=== PATIENT | female | born 1950 | race Two or more races ===

== ENCOUNTER → 2017-10-31 | Outpatient (CLI) | payer MEDICARE ==
[~2017-10-31] MED LIST: CIME400 PO; Calcium + Vita1 EACH PO; Cephalexin500 MG PO; Excedrin Extra1 EACH PO; FISH1000 PO; Flomax0.4 MG PO; Inderal40 MG; Iron Supplemen325 MG PO; LORA1 PO; META800 PO; MULVITMIND PO; Norco 5-325 Ta1 EACH PO; Percocet 5-3251 EACH PO; QUININE SULFAT324 MG PO; TRAM50 PO; ZOLP5 PO; Zofran Odt4 MG SL
[2017-10-31 10:33] LABS: Source, Urine Clean Catch
[2017-10-31 17:48] LABS: Bilirubin, Urine Neg (Neg); Blood, Urine 5+ (Neg); Glucose Qualitative, Urine Neg (Neg); Ketones, Urine Neg (Neg); Leukocyte Esterase, Urine 1+ (Neg); Nitrite, Urine Neg (Neg); Protein, Urine 2+ (Neg); Urobilinogen, Urine NORM (Normal)
[2017-10-31 18:32] LABS: Appearance, Urine Hazy (Clear); Color, Urine Yellow (P-Yellow)
[2017-10-31 18:33] LABS: Red Blood Cells, Urine 25-50 /hpf (0-2); Squamous Epithelial Cells Mod /hpf (Few)
[2017-10-31 18:34] LABS: Bacteria Mod /hpf
== END | disposition home or self-care (01) ==
LOC: LAB SHORT 10:29 → LAB 10:29
PROVIDERS: Urology
DX: N39.0 Urinary tract infection, site not specified (principal)
CPT/HCPCS: 81001; 87077; 87086; 87186

== ENCOUNTER → 2018-02-05 | Outpatient (CLI) | payer MEDICARE ==
[2018-02-05 15:01] LABS: Test Name 306266
== END | disposition home or self-care (01) ==
LOC: LAB 14:38 → LAB SHORT 14:38
PROVIDERS: Urology
DX: N20.0 Calculus of kidney (principal)
CPT/HCPCS: 81050

== ENCOUNTER → 2018-09-19 | Outpatient (CLI) | payer MEDICARE ==
[2018-09-28 09:16] LABS: BRUSHITE 0.16 ratio (0.00-3.00); CALCIUM OXALATE 1.76 ratio (0.00-6.00); CALCIUM, URINE 2.9 mg/dL (Not Estab.); CHLORIDE URINE 105 (110-250); CITRIC ACID (CITRATE) 40 mg/L (Not Estab.); CITRIC ACID(CITRATE) 91 mg/24 hr (320-1240); CREATININE, URINE 36.4 mg/dL (Not Estab.); CREATININE, URINE 828.1 mg/24 hr (800.0-1800.0); MAGNESIUM, URINE 1.8 mg/dL (Not Estab.); MONOSODIUM URATE 0.68 ratio (0.00-4.00); OSMOLALITY, URINE 309 (300-900); SODIUM, URINE 139 (39-258); SODIUM, URINE 61 mmol/L (Not Estab.); STRUVITE 0.01 ratio (0.00-1.00); URIC ACID 0.55 ratio (0.00-1.20); URINE VOLUME 2275 mL/24 hr (600-1600); URINE VOLUME (PRESERVATIVE) 2275 mL/24 hr (600-1600)
== END ==
LOC: LAB SHORT 10:00 → LAB 10:00
PROVIDERS: Urology
DX: N20.0 Calculus of kidney (principal)
CPT/HCPCS: 81003; 81050; 82131; 82140; 82340; 82436; 82507; 82570; 83735; 83935; 83945; 84105; 84133; 84300; 84392; 84560

== ENCOUNTER → 2019-03-20 | Outpatient (CLI) | payer MEDICARE ==
[2019-03-28 16:06] LABS: BRUSHITE 2.16 ratio (0.00-3.00); CALCIUM OXALATE 5.13 ratio (0.00-6.00); CALCIUM, URINE 178.5 mg/24 hr (100.0-300.0); CALCIUM, URINE 8.5 mg/dL (Not Estab.); CHLORIDE URINE 99 (110-250); CITRIC ACID (CITRATE) 79 mg/L (Not Estab.); CITRIC ACID(CITRATE) 166 mg/24 hr (320-1240); CREATININE, URINE 43.1 mg/dL (Not Estab.); CREATININE, URINE 905.1 mg/24 hr (800.0-1800.0); MAGNESIUM, URINE 3.8 mg/dL (Not Estab.); MONOSODIUM URATE 1.08 ratio (0.00-4.00); OSMOLALITY, URINE 371 (300-900); SODIUM, URINE 141 (39-258); SODIUM, URINE 67 mmol/L (Not Estab.); STRUVITE 0.02 ratio (0.00-1.00); URIC ACID 0.16 ratio (0.00-1.20); URINE VOLUME 2100 mL/24 hr (600-1600); URINE VOLUME (PRESERVATIVE) 2100 mL/24 hr (600-1600)
== END | disposition home or self-care (01) ==
LOC: LAB SHORT 11:08 → LAB 11:08
PROVIDERS: Urology
DX: N20.0 Calculus of kidney (principal)
CPT/HCPCS: 81003; 81050; 82131; 82140; 82340; 82436; 82507; 82570; 83735; 83935; 83945; 84105; 84133; 84300; 84392; 84560

== ENCOUNTER 2019-07-09 15:10 | Inpatient (IN) | payer MEDICARE ==
[~2019-07-09] VITALS: Ht 157.5 cm; Wt 100.0 kg
[~2019-07-09 15:10] MED LIST changes: +ALLEGRA D PO; +ALLO300 PO; +ASPI81CH PO; +CELE100 PO; +HYDR1TAB94 PO; -Inderal40 MG; +Inderal40 MG PO; +MYRBETRIQ50 MG PO; +POTCIT10 PO; +VITAMIN D31000 UNI3 PO; +ZOLP12.5 PO
--- NOTE | 2019-07-10 07:17 | NUR ---
History, Chart, Medications and Allergies reviewed before start of procedure.Lungs clear T/O to Auscultation. Patient confirms NPO status and agrees with scheduled surgery. Pre-Op teaching done. Pt verbalizes understanding. Patient reports completing Chlorhexadine shower X2 prior to admission to hospital.
--- NOTE | 2019-07-11 04:12 | NUR ---
SHIFT SUMMARY POD 1 R TOTAL SHOULDER. PT [id number] VSS PT DECINED BP MEDS AT BEGINNING OF SHIFT AND REQUESTED THEM LATER ON DURING SHIFT FOR HER BP. SLING IN PLACE, POLAR DAMION ON DURING SHIFT. PT HAS REMAINED NWB ON SURGICAL SHOULDER. PT UP TO BATHROOM WITH STANDBY ASSIST. DRESSING CDI. TOLERATING PO WELL. MEDICATED PER EMAR FOR PAIN. PLAN IS TO GO HOME IN THE AM.
[2019-07-11] MEDS ORDERED: OXYC5 PO (11:04)
--- NOTE | 2019-07-11 12:37 | NUR ---
07/11/19 1237 Maxine Askew VERIFICATIONS: EDIT CHART.
--- NOTE | 2019-07-11 14:37 | NUR ---
PATIENT D/C'D HOME WITH SPOUSE AT THIS TIME; STATES PAIN CONTROLLED WITH PO MEDS, TOLERATING DIET, VOIDING. STATES UNDERSTANDING OF MEDS, WOUND CARE, F/U APPT, ETC. NO ACUTE CHANGES OR C/O AT THIS TIME.
== END 2019-07-11 14:37 | disposition home or self-care (01) | DRG 483 ==
LOC: SURS 07-10 05:52 → PRE IP 07-10 05:52 → SURS 07-10 12:06
PROVIDERS: ADMIT Orthopaedic Surgery
PROC: 0RRJ0JZ Replacement of Right Shoulder Joint with Synthetic Substitute, Open Approach (ICD-10-PCS; principal; 2019-07-10 07:30)
DX: M19.011 Primary osteoarthritis, right shoulder (principal); G47.33 Obstructive sleep apnea (adult) (pediatric); E66.9 Obesity, unspecified; Z79.82 Long term (current) use of aspirin; Z87.891 Personal history of nicotine dependence
CPT/HCPCS: 73030; 88300; 97110; 97116; 97162; 97166; 97535; C1776; J0171; J0690; J0735; J1100; J1885; J2250; J2370; J2405; J2704; J2710; J2795; J3010; J3370; J7120

== ENCOUNTER → 2019-11-01 | Outpatient (CLI) | payer MEDICARE, OTHER ==
[~2019-11-01] MED LIST changes: +OXYC5 PO; +Robaxin-750750 MG PO
[2019-11-08 13:07] LABS: BRUSHITE 0.69 ratio (0.00-3.00); CALCIUM OXALATE 3.92 ratio (0.00-6.00); CALCIUM, URINE 193.2 mg/24 hr (100.0-300.0); CALCIUM, URINE 9.2 mg/dL (Not Estab.); CHLORIDE URINE 176 (110-250); CITRIC ACID (CITRATE) 66 mg/L (Not Estab.); CITRIC ACID(CITRATE) 139 mg/24 hr (320-1240); CREATININE, URINE 1138.2 mg/24 hr (800.0-1800.0); CREATININE, URINE 54.2 mg/dL (Not Estab.); MAGNESIUM, URINE 4.6 mg/dL (Not Estab.); MONOSODIUM URATE 1.23 ratio (0.00-4.00); OSMOLALITY, URINE 496 (300-900); SODIUM, URINE 200 (39-258); SODIUM, URINE 95 mmol/L (Not Estab.); STRUVITE 0.01 ratio (0.00-1.00); URIC ACID 1.01 ratio (0.00-1.20); URINE VOLUME 2100 mL/24 hr (600-1600); URINE VOLUME (PRESERVATIVE) 2100 mL/24 hr (600-1600)
== END | disposition home or self-care (01) ==
LOC: LAB SHORT 10:00 → LAB 10:00 → EDSTATUS 08-27 14:30 → LAB FUT 08-27 14:30
PROVIDERS: Urology
DX: N20.0 Calculus of kidney (principal)
CPT/HCPCS: 81003; 82131; 82140; 82340; 82436; 82507; 82570; 83735; 83935; 83945; 84105; 84133; 84300; 84392; 84560

== ENCOUNTER 2020-05-01 11:19 | Emergency (ER) | payer MEDICARE, OTHER ==
[~2020-05-01] VITALS: Ht 157.5 cm; Wt 90.7 kg
== END 2020-05-01 14:00 | disposition home or self-care (01) ==
LOC: ER 11:19
DX: S06.0X9A Concussion with loss of consciousness of unspecified duration, initial encounter (principal); J44.9 Chronic obstructive pulmonary disease, unspecified; R41.82 Altered mental status, unspecified; Z88.5 Allergy status to narcotic agent; Z79.899 Other long term (current) drug therapy; Z87.442 Personal history of urinary calculi; W01.10XA Fall on same level from slipping, tripping and stumbling with subsequent striking against unspecified object, initial encounter
CPT/HCPCS: 70450; 99284-25

== ENCOUNTER → 2020-06-15 | Outpatient (CLI) | payer MEDICARE, OTHER | END | disposition home or self-care (01) | LOC: LAB 08:30 → LAB SHORT 08:30 → LAB FUT 05-26 08:00 → EDSTATUS 05-26 08:00 | DX: N20.0 Calculus of kidney (principal) | CPT/HCPCS: 81050 ==

== ENCOUNTER 2021-07-15 07:24 | Day surgery (SDC) | payer MEDICARE, OTHER ==
[~2021-07-15] VITALS: Ht 157.5 cm; Wt 91.5 kg
[2021-07-15] MEDS ORDERED: ALLEGRA ALLERG180 MG PO (08:11)
--- NOTE | 2021-07-15 09:27 | NUR ---
07/15/21 0927 Isha Han COMPLETE BY DR BRANDT IN OR. PT SLEEPING. VSS.
--- NOTE | 2021-07-15 10:39 | NUR ---
07/15/21 1039 ALEXIS BARBA 1034 PT O2 SATS DROP 89 ON RA- O2 10L FACETENT- 98% INCENTIVE SPIROMETER EDUCATED AND IMPLEMENTED GOAL 1800- PT HITTING 1000 1036 92-93% O2 RA SEE VITAL STRIP
--- NOTE | 2021-07-15 11:16 | NUR ---
07/15/[address] GAVE VERBAL ORDER FOR INOCENCIO DEMPSEY TO G
== END 2021-07-15 11:31 | disposition home or self-care (01) ==
LOC: ORSCSDS 07:24
PROVIDERS: Orthopaedic Surgery
PROC: 0MU Bursae and Ligaments, Supplement (ICD-10-PCS; principal; 2021-07-15 08:30)
DX: S53.442A Ulnar collateral ligament sprain of left elbow, initial encounter (principal); M24.222 Disorder of ligament, left elbow; I10 Essential (primary) hypertension; I25.10 Atherosclerotic heart disease of native coronary artery without angina pectoris; Z87.891 Personal history of nicotine dependence; G47.33 Obstructive sleep apnea (adult) (pediatric); Z79.899 Other long term (current) drug therapy; Z79.82 Long term (current) use of aspirin; F41.9 Anxiety disorder, unspecified; E66.01 Morbid (severe) obesity due to excess calories; Z68.36 Body mass index [BMI] 36.0-36.9, adult
CPT/HCPCS: C1713; J0690; J1100; J1885; J2250; J2370; J2405; J2704; J2795; J3010; J7120

== ENCOUNTER 2021-09-06 13:58 | Day surgery (SDC) | payer MEDICARE, OTHER ==
[~2021-09-06] VITALS: Ht 157.5 cm; Wt 201.6 kg
[~2021-09-06 13:58] MED LIST changes: +ALLEGRA ALLERG180 MG PO; +ALLEGRA ALLERGY60 MG PO; +Aspir 8181 MG PO; +Ativan1 MG PO; +CALCIUM-MAGNES1 EAC9 PO; +CELE200 PO; +DULO30 PO; +LOSA25 PO; +MULTIPLE VITAM1 EACH PO; +POTA10T PO; +QUININE SULFAT324 M1 PO; +VITAMIN D310 MC1 PO; +Vitamin B Comple1 EA PO; +Zinc Gluconate100 MG PO
--- NOTE | 2021-09-06 16:34 | NUR ---
09/06/21 1634 Gina Torres WHEN PT. UP TO SIT AT SIDE OF BED TO GET DRESSED, PT. C/O BOTTOM HURTING. PT. VERBALIZES FALLING LAST NIGHT WHEN GOING TO BR AT HOME.
== END 2021-09-06 16:26 | disposition home or self-care (01) ==
LOC: ORSCSDS 13:58
PROVIDERS: Internal Medicine Gastroenterology
PROC: 0DBK8ZX Excision of Ascending Colon, Via Natural or Artificial Opening Endoscopic, Diagnostic (ICD-10-PCS; principal; 2021-09-06 15:15)
DX: Z12.11 Encounter for screening for malignant neoplasm of colon (principal); Z86.010 Personal history of colon polyps; D12.2 Benign neoplasm of ascending colon; K57.30 Diverticulosis of large intestine without perforation or abscess without bleeding; G47.33 Obstructive sleep apnea (adult) (pediatric); I10 Essential (primary) hypertension; E66.9 Obesity, unspecified; Z68.39 Body mass index [BMI] 39.0-39.9, adult; Z87.891 Personal history of nicotine dependence; Z79.899 Other long term (current) drug therapy
CPT/HCPCS: 88305; J0330; J0461; J2405; J2704; J7120

== ENCOUNTER → 2023-05-02 | Outpatient (CLI) | payer MEDICARE, OTHER ==
[2023-05-11 14:11] LABS: BRUSHITE 1.15 ratio (0.00-3.00); CALCIUM OXALATE 4.16 ratio (0.00-6.00); CALCIUM, URINE 7.2 mg/dL (Not Estab.); CHLORIDE URINE 98 (38-210); CITRIC ACID (CITRATE) 168 mg/L (Not Estab.); CITRIC ACID(CITRATE) 252 mg/24 hr (320-1240); CREATININE, URINE 1348.5 mg/24 hr (800.0-1800.0); CREATININE, URINE 89.9 mg/dL (Not Estab.); MAGNESIUM, URINE 3.9 mg/dL (Not Estab.); MONOSODIUM URATE 1.66 ratio (0.00-4.00); OSMOLALITY, URINE 583 (300-900); SODIUM, URINE 116 (39-258); SODIUM, URINE 77 mmol/L (Not Estab.); STRUVITE 0.01 ratio (0.00-1.00); URIC ACID 0.54 ratio (0.00-1.20); URINE VOLUME 1500 mL/24 hr (600-1600); URINE VOLUME (PRESERVATIVE) 1500 mL/24 hr (600-1600)
== END | disposition home or self-care (01) ==
LOC: LAB 08:30 → LAB SHORT 08:30 → EDSTATUS 04-06 12:05 → LAB FUT 04-06 12:05
PROVIDERS: Urology
DX: N28.1 Cyst of kidney, acquired (principal)
CPT/HCPCS: 81050

== ENCOUNTER 2024-08-14 11:26 | Day surgery (SDC) | payer MEDICARE, OTHER ==
[2024-08-14] VITALS (21 sets, daily range): BP systolic 127–166; BP diastolic 57–78
[~2024-08-14] VITALS: Ht 157.5 cm; Wt 92.8 kg
[~2024-08-14 11:26] MED LIST changes: +Amaryl1 MG PO; +CATAPRES0.2 M1 PO; +POTASSIUM CITRA PO; +Sanctura20 MG PO; +[UNRECOGNIZED DRUG - OTHER] PO
[2024-08-14] MEDS ORDERED: Lactated Ringer's 1,000 ML IV SCH (11:40)
[2024-08-14] MEDS ORDERED: CeFAZolin Sodium 2,000 MG in NS 100 ML IV SCH ×2 (11:40→22:30)
[2024-08-14] MEDS ORDERED: Ropivacaine 0.5% HCl/Pf 123.125 MG,EPINEPHrine HCL 0.25 MG,Ketorolac Tromethamine 15 MG... INFIL SCH (11:40)
[2024-08-14] MEDS ORDERED: Acetaminophen 500 MG Tab PO SCH ×2 (11:40→16:00)
[2024-08-14] MEDS ORDERED: OxyCODONE HCL 10 MG TABCR PO SCH (11:40)
[2024-08-14] MEDS ORDERED: Tranexamic Acid 100 ML IV SCH (11:46)
--- NOTE | 2024-08-14 11:47 | NUR ---
Ambulatory in Day Surgery W/ USE OF WALKER. PT HAS SIGNIFICANT PAIN IN RIGHT HIP IN ADDITON TO NEEDING LEFT KNEE REPLACED. Pre-Op teaching done. Pt verbalizes understanding. History, Chart, Medications and Allergies reviewed before start of procedure.Patient confirms NPO status and agrees with scheduled surgery. Patient reports completing Chlorhexadine shower X2 prior to admission to hospital.
[2024-08-14] MEDS ORDERED: Vancomycin HCL 1,000 MG in NS 250 ML IV SCH (11:50)
[2024-08-14] MEDS ORDERED: Ondansetron HCl 2 MG / ML 2ML Vial IV PRN ×2 (11:55→14:10)
[2024-08-14] MEDS ORDERED: HYDROmorphone HCl/Pf 1MG SYR IV PRN ×2 (11:55→14:00)
[2024-08-14] MEDS ORDERED: FentaNYL Citrate 50 MCG/ML 2 ML Injection IV PRN ×3 (11:55→12:00)
[2024-08-14] MEDS ORDERED: OZEMPIC0.25 MG/02 (12:13)
[2024-08-14] MEDS ORDERED: CeFAZolin Sodium 2,000 MG VIAL ONE (12:46)
[2024-08-14] MEDS ORDERED: Chlorhexidine Mouth Care 15 ML UDC MT SCH (13:15)
[2024-08-14] MEDS ORDERED: Magnesium Hydroxide Conc 10 ML UDC PO PRN (13:55)
[2024-08-14] MEDS ORDERED: FLU VACC TS2024-25(6MOS UP)/PF 45 MCG/0.5 ML SYRINGE IM SCH (14:00)
[2024-08-14] MEDS ORDERED: NS 1,000 ML IV SCH (14:00)
[2024-08-14] MEDS ORDERED: Metoclopramide HCl 5MG / ML 2ML Vial IV PRN (14:00)
[2024-08-14] MEDS ORDERED: propofoL 50 ML IV ONE (14:04)
[2024-08-14] MEDS ORDERED: DiphenhydrAMINE HCL 25 MG Cap PO PRN (14:05)
[2024-08-14] MEDS ORDERED: Promethazine HCl 25 MG Tab PO PRN (14:05)
[2024-08-14] MEDS ORDERED: Bisacodyl 10 MG Supp PR PRN (14:05)
[2024-08-14] MEDS ORDERED: FentaNYL Citrate 50 MCG/ML 2 ML Injection ONE ×2 (14:07→17:41)
[2024-08-14] MEDS ORDERED: OxyCODONE HCL 5 MG TAB PO PRN ×2 (14:10)
[2024-08-14] MEDS ORDERED: Vancomycin HCl 1000 MG ADDvantage ONE (14:20)
[2024-08-14] MEDS ORDERED: Zolpidem Tartrate 5 MG Tab PO PRN (14:25)
[2024-08-14] MEDS ORDERED: Midazolam HCl 1MG / ML 2ML Vial ONE (14:30)
[2024-08-14] MEDS ORDERED: Phenylephrine HCl 100 MCG/ML-NS 10MLSYR (1MG/10ML) ONE (15:04)
--- NOTE | 2024-08-14 15:09 | NUR ---
08/14/24 1509 Lilian Slaughter VANCOMYCIN 1GM IV WAS STARTED IN PREOP AT 1310. SPINAL BLOCK COMPLETED BY UPON ENTRY TO OR.
[2024-08-14] MEDS ORDERED: Ondansetron HCl 2 MG / ML 2ML Vial ONE (15:36)
[2024-08-14] MEDS ORDERED: Dexamethasone Sod Phos 10 MG/ML 1ML VIAL ONE (15:37)
[2024-08-14] MEDS ORDERED: Insulin Regular 100 UNIT/ML 10ML Vial SC SCH (16:30)
[2024-08-14] MEDS ORDERED: Trospium Chloride 20 MG Tab PO SCH (16:30)
[2024-08-14] MEDS ORDERED: HYDROmorphone HCl/Pf 1MG SYR ONE (17:08)
[2024-08-14] MEDS ORDERED: Potassium Citrate 5 MEQ TABCR PO SCH (17:30)
[2024-08-14] MEDS ORDERED: Ketorolac Tromethamine 15mg Vial IV SCH (18:00)
--- NOTE | 2024-08-14 19:08 | NUR ---
POST OP: REPORT RECEIVED FROM DISK GRINDER. PT TO UNIT AT ABOUT 1820. VSS, A/O, SURGICAL SITE WNL. PT REPORTS FULL SENSATION, ABLE TO WIGGLE TOES, CAP REFILL LESS THAN 3 SEC. PEDAL PULSE +1. LUNGS ARE CLEAR, PT ABLE TO COUGH AND DEEP BREATHE. SP02 94% ON 3L O2. PT RATES PAIN 7/10, MEDICATED PER EMAR. TXA GIVEN. PT INSTRUCTED TO USE CALL LIGHT IN NEEDS OOB, CALL LIGHT IN REACH. REPORT PASSED TO NOC ISH STEPHENSON
[2024-08-14] MEDS ORDERED: Losartan Potassium 25 MG Tab PO SCH (21:00)
[2024-08-14] MEDS ORDERED: Docusate Sodium 100 MG Cap PO SCH (21:00)
[2024-08-14] MEDS ORDERED: DULoxetine HCL 30 MG Cap DR PO SCH (21:00)
[2024-08-14] MEDS ORDERED: Glimepiride 1 MG Tablet PO SCH (21:00)
[2024-08-14] MEDS ORDERED: CloNIDine HCl 0.2 MG Tab PO SCH (21:00)
[2024-08-15] MEDS ORDERED: Vancomycin HCL 1,000 MG in NS 250 ML IV SCH (01:00)
--- NOTE | 2024-08-15 04:52 | NUR ---
SHIFT SUMMARY PT POD 0 L TKA. PT HAS SLEPT OFF AND ON T/O THE NIGHT. PT VOIDING, AND TOLERATING PO INTAKE. PT WAS A LITTLE BIT SHAKY WITH FIRST AMBULATION POST OP SO BSC WAS UTILIZED FOR SAFETY, THIS AM PT MUCH MORE STEADY AND HAS BEEN ABLE TO SAFELY AMBULATE TO THE BATHROOM. PAIN MANAGED WITH MEDS PER EMAR. SURGICAL SITE WNL, IV ABX INFUSED. PLAN IS FOR DC TODAY. BED IN LOWEST POSITION, CALL LIGHT WITHIN REACH.
[2024-08-15 05:03] VITALS: BP 161/72
[2024-08-15 05:09] LABS: BASOPHILS ABSOLUTE AUTO 0.01 K/mm3 (0.00-0.23); BASOPHILS PERCENT AUTO 0 % (0-2); EOSINOPHILS PERCENT AUTO 0 % (0-6); Hematocrit 39.9 % (33.0-51.0); IMMATURE GRAN ABSOLUTE AUTO 0.05 K/mm3 (0.00-0.10); IMMATURE GRAN PERCENT AUTO 0 % (0-1); LYMPHOCYTES ABSOLUTE AUTO 0.78 K/mm3 (0.84-5.20); LYMPHOCYTES PERCENT AUTO 7 % (21-46); MONOCYTES ABSOLUTE AUTO 0.43 K/mm3 (0.16-1.47); MONOCYTES PERCENT AUTO 4 % (4-13); Mean Corpuscular HGB 24.7 pg (26.0-34.0); Mean Corpuscular HGB Conc 30.1 g/dL (31.5-36.5); Mean Corpuscular Volume 82 fL (80-100); Mean Platelet Volume 10.1 fL (9.1-12.4); NEUTROPHILS ABSOLUTE AUTO 10.52 K/mm3 (1.96-9.15); NEUTROPHILS PERCENT AUTO 89 % (41-73); Platelet Count 271 K/mm3 (150-400); RDW Standard Deviation 53.5 fL (35.1-46.3); Red Blood Cell Count 4.85 M/mm3 (3.80-5.20); White Blood Cell Count 11.79 K/mm3 (4.00-11.30)
[2024-08-15 06:53] LABS: Calcium, Blood 8.5 mg/dL (8.5-10.1); Creatinine, Blood 1.16 mg/dL (0.40-1.00); Magnesium, Blood 1.8 mg/dL (1.6-2.4); Potassium, Blood 4.9 mmol/L (3.5-5.5)
[2024-08-15] MEDS ORDERED: ASPI81CH PO (07:50)
[2024-08-15] MEDS ORDERED: OXYC5 PO (07:50)
[2024-08-15] MEDS ORDERED: SULTRIDS PO (07:51)
[2024-08-15] MEDS ORDERED: PROM25 PO (07:51)
[2024-08-15] MEDS ORDERED: Trimethoprim/Sulfamethoxazole DS Tab PO SCH (09:00)
[2024-08-15] MEDS ORDERED: Aspirin 81 MG Chew PO SCH (09:00)
[2024-08-15] MEDS ORDERED: Multivitamins/Minerals TAB PO SCH (09:00)
[2024-08-15] MEDS ORDERED: Allopurinol 300 MG Tab PO SCH (09:00)
[2024-08-15 13:15] VITALS: BP 129/61
--- NOTE | 2024-08-15 13:52 | NUR ---
DISCHARGE PT PROVIDED WITH WRITTEN AND VERBAL DISCHARGE INSTRUCTIONS, SHE VERBALIZED UNDERSTANDING. PT PROVIDED WITH CLEAN DRESSINGS FOR DRESSING CHANGES. PAIN MANAGED AT TIME OF DISCHARGE. VSS WITHIN 1 HOUR OF DISCHARGE. PT ASSISTED OUT IN A WHEELCHAIR AND INTO HER VEHICLE AT 1338. PT CLEARED THERAPY, TOLERATED PO, PAIN MANAGED AND ABLE TO VOID PRIOR TO DISCHARGE.
== END 2024-08-15 13:40 | disposition home or self-care (01) ==
LOC: ORSCMMR 11:26 → SURS 17:55 → ORSCMMR 08-15 13:40
PROVIDERS: Orthopaedic Surgery
PROC: 0SRD0JA Replacement of Left Knee Joint with Synthetic Substitute, Uncemented, Open Approach (ICD-10-PCS; principal; 2024-08-14 14:15)
DX: M17.12 Unilateral primary osteoarthritis, left knee (principal); I10 Essential (primary) hypertension; G47.33 Obstructive sleep apnea (adult) (pediatric); F41.9 Anxiety disorder, unspecified; E66.9 Obesity, unspecified; Z68.37 Body mass index [BMI] 37.0-37.9, adult; Z79.899 Other long term (current) drug therapy; Z79.84 Long term (current) use of oral hypoglycemic drugs; Z79.85 Long-term (current) use of injectable non-insulin antidiabetic drugs
CPT/HCPCS: 36415; 73560-LT; 80048; 82947; 83735; 85025; 97110; 97116; 97162; 97530; A9270; C1713; C1776; J0171; J0690; J0735; J1100; J1171; J1815; J1885; J2250; J2371; J2405; J2704; J2795; J3010; J3370; J7030; J7050; J7120

== ENCOUNTER → 2024-09-23 | Outpatient (CLI) | payer MEDICARE, OTHER ==
[~2024-09-23] MED LIST changes: +OZEMPIC0.25 MG/02; +PROM25 PO; +SULTRIDS PO
[2024-09-30 15:23] LABS: CALCIUM, URINE - PER 24H 42 mg/d (100-250); CALCIUM, URINE - PER VOLUME 4.2 mg/dL; CHLORIDE, URINE - PER 24H 42 mmol/d (140-250); CHLORIDE, URINE - PER VOLUME 42 mmol/L; CITRIC ACID, URINE - PER 24H 224 mg/d (320-1240); CITRIC ACID,URINE - PER VOLUME 224 mg/L; CREATININE, URINE - PER 24H 830 mg/d (500-1400); CREATININE, URINE - PER VOLUME 83 mg/dL; HOURS COLLECTED 24 hr; MAGNESIUM, URINE - PER VOLUME 2.1 mg/dL; MAGNESIUM, URINE PER 24H 21 mg/d (12-199); OXALATE, URINE - PER 24H 27 mg/d (13-40); OXALATE, URINE - PER VOLUME 27 mg/L; PH, URINE 6.65 (5.00-7.50); PHOSPHORUS, URINE - PER 24H 550 mg/d (400-1300); PHOSPHORUS, URINE - PER VOLUME 55 mg/dL; POTASSIUM, URINE - PER 24H 56 mmol/d (25-125); POTASSIUM, URINE - PER VOLUME 56 mmol/L; SODIUM, URINE - PER 24H 53 mmol/d (51-286); SODIUM, URINE - PER VOLUME 53 mmol/L; SULFATE, URINE - PER 24H 13 mmol/d (6-30); SULFATE, URINE - PER VOLUME 13 mmol/L; TOTAL VOLUME 1000 mL; URIC ACID, URINE - PER 24H 102 mg/d (250-750); URIC ACID, URINE - PER VOLUME 10.2 mg/dL; URINE SUPERSATURATION INTERP Normal; URINE SUPERSATURATION, CAHPO4 1.29; URINE SUPERSATURATION, CAOX 3.01; URINE SUPERSATURATION, UA CALC 0.04
== END ==
LOC: LAB SHORT 10:00 → LAB 10:00
PROVIDERS: Urology
DX: N20.0 Calculus of kidney (principal)
CPT/HCPCS: 81003; 81050; 82131; 82140; 82340; 82436; 82507; 82570; 83735; 83935; 83945; 84105; 84133; 84300; 84392; 84560